=== PATIENT | female | born 2000 | race Caucasian/White ===

== ENCOUNTER 2024-11-05 21:36 | Emergency (ER) | payer OTHER ==
[~2024-11-05] VITALS: Ht 152.4 cm; Wt 47.7 kg
[2024-11-05 22:16] LABS: BASOPHILS 0.3 % (0.1-1.2); EOSINOPHILS 0.3 % (0.7-5.8); LYMPHOCYTES 40.5 % (19.3-51.7); MCH 32.6 PG (25.6-32.2); MCHC 35.7 g/dL (32.2-35.5); MCV 91.4 fL (79.4-94.8); MONOCYTES 6.7 % (4.7-12.5); NEUTROPHILS 52.0 % (34.0-71.1); RBC 4.20 M/uL (3.93-5.22)
[2024-11-05 22:26] LABS: ALCOHOL, MEDICAL 261.0 ng/dL (<3); ALT (SGPT) 15.0 U/L (14-59); AST (SGOT) 16.0 U/L (15-37); GLOMERULAR FILTRATION RATE,EST 108.0 mL/min (>60); PROTEIN, TOTAL 7.6 g/dL (6.4-8.2); UREA NITROGEN 9.0 mg/dL (7-18)
[2024-11-05] MEDS ORDERED: LACTATED RINGER'S 1,000 ML IV ONE (23:30)
[2024-11-06 01:06] VITALS: BP 99/67
== END 2024-11-06 01:06 | disposition home or self-care (01) ==
LOC: ED 21:36
PROVIDERS: Internal Medicine
DX: F10.929 Alcohol use, unspecified with intoxication, unspecified (principal); Y90.8 Blood alcohol level of 240 mg/100 ml or more; Z88.0 Allergy status to penicillin
CPT/HCPCS: 36415; 80053; 85025; 96361; 96374; 99284-25; G0480; J2405; J7121